=== PATIENT | male | born 1965 | race Caucasian/White ===

== ENCOUNTER 2016-05-21 05:48 | Emergency (ER) | payer OTHER ==
[~2016-05-21] VITALS: Ht 185.4 cm; Wt 99.8 kg
[~2016-05-21 05:48] MED LIST: AMOXICILLIN250 M3 PO; BACTRIM DS TAB1 EACH PO; CHLORPROMAZINE25 MG PO; CLONAZEPAM1 M2 PO; CLONAZEPAM1 MG PO; DILAUDID8 MG PO; HYDROMORPHONE HY8 MG PO; IBUPROFEN600 M1 PO; IBUPROFEN800 M1 PO; NEBULIZER INH; OLANZAPINE10 MG PO; OLANZAPINE20 MG PO; OXYCODONE5 M1 PO; OXYCONTIN (MONO40 MG PO; PERCOCET 10-321 EACH PO; PERCOCET 325 MG1 TA2 PO; PROPRANOLOL HCL20 MG PO; TRILEPTAL600 MG; VALIUM5 M1 PO; ZOFRAN ODT4 M1 PO; ZOFRAN ODT4 MG PO
[2016-05-21 06:10] VITALS: BP 186/98
--- NOTE | 2016-05-21 07:22 | ED GENERAL ADULT ---
History of Present Illness General Chief Complaint: General Adult Stated Complaint: " HICCUPS [id number], CAN'T CAUGHT MY BREATH" Source: patient, old records Exam Limitations: no limitations Vital Signs & Intake/Output Vital Signs & Intake/Output Vital Signs Date Time Temp Pulse Resp B/P Pulse O2 O2 Flow FiO2 Ox Delivery Rate 05/21 0518 Room Air 05/21 0610 98.3 113 22 186/98 100 Room Air Allergies Coded Allergies: NO KNOWN ALLERGIES (04/24/16) Reconcile Medications Amoxicillin 250 MG CAPSULE 1 CAP PO TID CELLULITIS Ibuprofen 600 MG TABLET 1 TAB PO TID PRN PAIN with food Sulfamethoxazole/Trimethoprim (Bactrim Ds Tablet) 800 MG-160 MG TABLET 1 TAB PO BID CELLULITIS Triage Note: PT TO TRIAGE FROM HOME C/O HICCUPS X2 MONTHS AND C/O SOB FROM THEM. 100% O2 ON RA. PT ALSO REPORTS SOME BLADDER DISCOMFORT BUT NO TROUBLE URINATING. Triage Nurses Notes Reviewed? yes HPI: PT PRESENTS FOR EVAL OF HICCUPS FOR 2 MONTHS. SEVERE INTERMITTENT EPISODES THAT INTERFERE WITH BREATHING. Patient saw his surgeon at the [facility] who prescribed Reglan but this is not helping. Patient states he has had multiple intra-abdominal surgeries and has a colostomy currently. He states he was evaluated in the emergency department roughly a month ago for similar symptoms. Past History Travel History Traveled to [place] past 21 day No Medical History Any Pertinent Medical History? 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 No Review of Systems Review of Systems Constitutional: Reports: no symptoms. EENTM: Reports: no symptoms. Respiratory: Reports: see HPI. Cardiovascular: Reports: no symptoms. GI: Reports: no symptoms. Genitourinary: Reports: no symptoms. Musculoskeletal: Reports: no symptoms. Skin: Reports: no symptoms. Neurological/Psychological: Reports: no symptoms. Hematologic/Endocrine: Reports: no symptoms. Immunologic/Allergic: Reports: no symptoms. All Other Systems: Reviewed and Negative Physical Exam Physical Exam General Appearance: SEE BELOW Comments: Gen.: Well-nourished, well-developed, no acute respiratory distress. Head: Normocephalic, atraumatic. Eyes: Normal inspection bilaterally Ears: Normal inspection bilaterally Nose: Normal inspection Throat/mouth : Moist mucosa Neck: Supple, full range of motion, no goiter Heart: Regular rate and rhythm, no murmurs rubs or gallops Lungs: Clear to auscultation bilaterally with normal air entry, no observed hiccuping Chest: Nontender Back: Normal range of motion Abdomen: Soft, diffuse tenderness (chronic due to multiple surgeries), nondistended, normal bowel sounds, left colostomy in place with normal-appearing output Extremities: Normal range of motion grossly, equal radial pulses, no cyanosis clubbing or edema Neurologic: Cranial nerves grossly intact, speech is clear Skin: warm and dry Psychiatric: Calm, cooperative, no apparent delusions or hallucinations Core Measures ACS in differential dx? No CVA/TIA Diagnosis: No Severe Sepsis Present: No Septic Shock Present: No Progress Differential Diagnoses I considered the following diagnoses in my evaluation of the patient: Diaphragm irritation Plan of Care: Orders Procedure Date/time Status CT CHEST WO IV CONTRAST 05/21 721 Active Initial ED EKG: none Comments: 05/21/2016 7:51:24 AM despite the patient's agreement with the emergency department plan, including CAT scan of the chest to rule out diaphragm irritation, he apparently has left the emergency department without notifying ED staff. Departure Departure Disposition: LEFT AGAINST MEDICAL ADVICE Condition: Stable Clinical Impression Primary Impression: Hiccups Referrals: PATIENT HAS NO PRIMARY CARE DR (PCP/Family) Departure Forms: Customer Survey General Discharge Information Critical Care Note Critical Care Note Critical Care Time: non-applicable
== END 2016-05-21 07:41 ==
LOC: ERH 05:48
DX: R06.6 Hiccough (principal)

== ENCOUNTER 2016-07-15 20:06 | Emergency (ER) | payer OTHER ==
--- NOTE | 2016-07-15 21:18 | ED GENERAL ADULT ---
History of Present Illness General Chief Complaint: General Adult Stated Complaint: HICUPS X 2 MONTHS Source: patient, family Exam Limitations: no limitations Vital Signs & Intake/Output Vital Signs & Intake/Output Vital Signs Date Time Temp Pulse Resp B/P Pulse O2 O2 Flow FiO2 Ox Delivery Rate 07/15 2136 97.2 89 22 144/89 98 Room Air 07/16 2015 97.0 90 24 147/93 97 Allergies Coded Allergies: NO KNOWN ALLERGIES (04/24/16) Reconcile Medications Amoxicillin 250 MG CAPSULE 1 CAP PO TID CELLULITIS Chlorpromazine HCl 25 MG TABLET 1-2 TAB PO TID PRN severe hiccups Ibuprofen 600 MG TABLET 1 TAB PO TID PRN PAIN with food Sulfamethoxazole/Trimethoprim (Bactrim Ds Tablet) 800 MG-160 MG TABLET 1 TAB PO BID CELLULITIS Triage Note: PER PT HICCUPS X 2 MONTHS ON CHLORPROMAZINE WITHOUT REGLAN DOES NOT WORK EITHER. Triage Nurses Notes Reviewed? yes Onset: Gradual Duration: week(s):, waxing and waning Timing: recent history Injury Environment: home Severity: mild Modifying Factors: Improves With: medication. Associated Symptoms: "I just have the hiccups." HPI: 50-year-old gentleman prior good health presents with pickups for the past 2 months. He states that he has been taking Thorazine intermittently. He states, "it helps, but sometimes a need to take 2 tablets. I ran out a few days ago." He notes no B symptoms, such as weight loss and abdominal pain fever chills nausea vomiting diarrhea. He is otherwise well and has no other concerns. Past History Travel History Traveled to [place] past 21 day No Medical History Any Pertinent Medical History? 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 No Review of Systems Review of Systems Constitutional: Reports: no symptoms. EENTM: Reports: no symptoms. Respiratory: Reports: no symptoms. Cardiovascular: Reports: no symptoms. GI: Reports: no symptoms. Genitourinary: Reports: no symptoms. Musculoskeletal: Reports: no symptoms. Skin: Reports: no symptoms. Neurological/Psychological: Reports: no symptoms. Hematologic/Endocrine: Reports: no symptoms. Immunologic/Allergic: Reports: no symptoms. All Other Systems: Reviewed and Negative Physical Exam Physical Exam General Appearance: well developed/nourished, mild distress Head: atraumatic, normal appearance Eyes: Bilateral: normal appearance. Ears, Nose, Throat: normal pharynx, normal ENT inspection, hearing grossly normal Neck: normal inspection, supple, full range of motion Respiratory: normal breath sounds, chest non-tender, no respiratory distress, quiet respiration, lungs clear Cardiovascular: regular rate/rhythm Gastrointestinal: normal bowel sounds, soft, non-tender, no organomegaly Back: normal inspection, normal range of motion, vertebral tenderness Extremities: normal inspection Neurologic/Psych: no motor/sensory deficits, awake, alert, oriented x 3 Skin: intact, normal color, warm/dry Core Measures ACS in differential dx? No CVA/TIA Diagnosis: No Severe Sepsis Present: No Septic Shock Present: No Progress Differential Diagnoses I considered the following diagnoses in my evaluation of the patient: Hiccups likely due to multifactorial etiology..... He is otherwise well. I refilled his Thorazine prescription. I referred him to pulmonary to consider further evaluation. Plan of Care: see below Initial ED EKG: none Departure Departure Disposition: HOME OR SELF CARE Condition: Stable Clinical Impression Primary Impression: Hiccups Referrals: PATIENT HAS NO PRIMARY CARE DR (PCP/Family) Departure Forms: Customer Survey General Discharge Information Prescriptions: Current Visit Scripts Chlorpromazine HCl 1-2 TAB PO TID PRN severe hiccups #60 TAB Ref 1 Critical Care Note Critical Care Note Critical Care Time: non-applicable
[2016-07-15] MEDS ORDERED: CHLORPROMAZINE25 M2 PO (21:23)
[2016-07-15 21:37] VITALS: BP 144/89
== END 2016-07-15 21:38 ==
LOC: ERH 20:06
DX: R06.6 Hiccough (principal)
CPT/HCPCS: 99281

== ENCOUNTER 2016-08-13 19:51 | Emergency (ER) | payer OTHER ==
[~2016-08-13] VITALS: Ht 185.4 cm; Wt 102.1 kg
[~2016-08-13 19:51] MED LIST changes: +CHLORPROMAZINE25 M2 PO
--- NOTE | 2016-08-13 21:02 | ED GI/GU/ABDOMINAL COMPLAINT ---
History of Present Illness General Chief Complaint: General Adult Stated Complaint: "HICCUPS [id number], VOMITING X4DAYS" Source: patient Exam Limitations: no limitations Vital Signs & Intake/Output Vital Signs & Intake/Output Vital Signs Date Time Temp Pulse Resp B/P Pulse O2 O2 Flow FiO2 Ox Delivery Rate 08/13 2230 96.1 88 16 128/69 97 Room Air 08/133 98 Room Air 08/13 2006 97.4 100 15 135/87 100 Room Air Allergies Coded Allergies: NO KNOWN ALLERGIES (04/24/16) Reconcile Medications Amoxicillin 250 MG CAPSULE 1 CAP PO TID CELLULITIS Chlorpromazine HCl 25 MG TABLET 1-2 TAB PO TID PRN severe hiccups Ibuprofen 600 MG TABLET 1 TAB PO TID PRN PAIN with food Ondansetron (Zofran Odt) 4 MG TAB.RAPDIS 1 TAB SL TID PRN nausea/vomiting Sulfamethoxazole/Trimethoprim (Bactrim Ds Tablet) 800 MG-160 MG TABLET 1 TAB PO BID CELLULITIS Triage Note: PT TO ED FOR HICCUPS X 6 MONTHS. Triage Nurses Notes Reviewed? yes Onset: Gradual Duration: week(s):, waxing and waning Timing: recent history Quality/Severity: cramping Location: generalized abdomen Radiation: no radiation Activities at Onset: none Prior Abdominal Problems: similar symptoms Modifying Factors: Improves With: other (medication). Associated Symptoms: nausea/vomiting HPI: 51yo gentleman h/o ostomy, chronic pain, recalcitrant hiccups, presents with hiccups and vomiting. He notes, "the thorazine helps a little... but then today, I was having such bad hiccups that I started throwing up... I couldn't keep anything down." He notes that he has had stool in his ostomy without change in consistency. He declines ct scan, given his history of several ct scans. He notes no fever, chills, chest pain. He has an appointment with a family psychologist in early September. He is otherwise well. Past History Travel History Traveled to [place] past 21 day No Medical History Any Pertinent Medical History? 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 No Review of Systems Review of Systems Constitutional: Reports: no symptoms. EENTM: Reports: no symptoms. Respiratory: Reports: no symptoms. Cardiovascular: Reports: no symptoms. GI: Reports: no symptoms. Genitourinary: Reports: no symptoms. Musculoskeletal: Reports: no symptoms. Skin: Reports: no symptoms. Neurological/Psychological: Reports: no symptoms. Hematologic/Endocrine: Reports: no symptoms. Immunologic/Allergic: Reports: no symptoms. All Other Systems: Reviewed and Negative Physical Exam Physical Exam General Appearance: well developed/nourished, mild distress Head: atraumatic, normal appearance Eyes: Bilateral: normal appearance. Ears, Nose, Throat, Mouth: hearing grossly normal, dry mucosa Neck: normal inspection, supple Respiratory: normal breath sounds, chest non-tender, no respiratory distress, quiet respiration, lungs clear Cardiovascular: regular rate/rhythm Gastrointestinal: normal bowel sounds, soft, ostomy intact w/ brown stool Back: normal inspection Extremities: normal range of motion Neurologic/Psych: no motor/sensory deficits, awake, alert, oriented x 3 Core Measures ACS in differential dx? No Severe Sepsis Present: No Septic Shock Present: No Progress Differential Diagnosis: hiccups vs viral syndrome vs other. Plan of Care: Orders Procedure Date/time Status LIPASE 08/13 2110 Complete HEPATIC FUNCTION PANEL 08/13 2110 Complete CBC WITHOUT DIFFERENTIAL 08/13 2110 Complete BASIC METABOLIC PANEL 08/13 2110 Complete AMYLASE 08/13 2110 Complete Laboratory Tests 08/13/162124: Anion Gap 10, Estimated GFR > 60, BUN/Creatinine Ratio 12.2, Glucose 93, Calcium 9.0, Total Bilirubin 0.4, Direct Bilirubin 0.3, AST 49, ALT 85 H, Alkaline Phosphatase 60, Total Protein 6.1 L, Albumin 3.6, Amylase < 30 L, Lipase 201, CBC w Diff NO MAN DIFF REQ, RBC 5.51, MCV 79.3 L, MCH 26.1 L, RDW 17.2 H, MPV 7.8, Gran % 65.8, Lymphocytes % 19.5 L, Monocytes % 12.6 H, Eosinophils % 1.9, Basophils % 0.2, Absolute Granulocytes 4.9, Absolute Lymphocytes 1.5, Absolute Monocytes 0.9 H, Absolute Eosinophils 0.1, Absolute Basophils 0, PUBS MCHC 32.9 L Initial ED EKG: none Departure Departure Disposition: HOME OR SELF CARE Condition: Stable Clinical Impression Primary Impression: Vomiting Referrals: PATIENT HAS NO PRIMARY CARE DR (PCP/Family) Departure Forms: Customer Survey General Discharge Information Prescriptions: Current Visit Scripts Ondansetron (Zofran Odt) 1 TAB SL TID PRN nausea/vomiting #10 TAB Ref 1 Comments 08/13/16, 23:18... pt feels well after 2 liters iv fluids and supportive medications. He will follow up with juan manuelry next month and return if symptoms recur.
[2016-08-13 21:40] LABS: ABSOLUTE BASOPHIL COUNT 0 /CUMM (0.0-0.2); ABSOLUTE EOSINOPHIL COUNT 0.1 /CUMM (0.0-0.7); ABSOLUTE GRANULOCYTE CT 4.9 /CUMM (1.4-6.5); ABSOLUTE LYMPH COUNT 1.5 /CUMM (1.2-3.4); ABSOLUTE MONOCYTE COUNT 0.9 /CUMM (0.10-0.60); BASOPHIL % 0.2 % (0.0-2.0); EOSINOPHIL % 1.9 % (0-5); GRANULOCYTE % 65.8 % (42.2-75.2); HEMATOCRIT 43.7 % (42-52); MEAN CORPUSCULAR HGB 26.1 PG (27.0-31.0); MEAN CORPUSCULAR HGB CONC 32.9 G/DL (33.0-37.0); MEAN CORPUSCULAR VOLUME 79.3 FL (80.0-94.0); MEAN PLATELET VOLUME 7.8 FL (7.4-10.4); PLATELET COUNT 290 /CUMM (130-400); RBC DISTRIBUTION WIDTH 17.2 % (11.5-14.5); RED BLOOD CELL CT 5.51 /CUMM (4.70-6.10); WHITE BLOOD CELL COUNT 7.4 /CUMM (4.8-10.8)
[2016-08-13 22:31] VITALS: BP 128/69
[2016-08-13] MEDS ORDERED: ZOFRAN ODT4 M1 SL (23:06)
== END 2016-08-13 23:26 ==
LOC: ERH 19:51
PROVIDERS: Pediatrics
DX: R11.10 Vomiting, unspecified (principal)
CPT/HCPCS: 96374; 96375; 96376; 99291; J2405; J3230

== ENCOUNTER 2016-10-15 19:58 | Emergency (ER) | payer OTHER ==
[~2016-10-15] VITALS: Ht 185.4 cm; Wt 99.8 kg
[~2016-10-15 19:58] MED LIST changes: +ZOFRAN ODT4 M1 SL
[2016-10-15] MEDS ORDERED: CLONAZEPAM1 M2 PO (20:23)
[2016-10-15] MEDS ORDERED: HYDROMORPHONE HC8 M1 PO (20:23)
[2016-10-15] MEDS ORDERED: LOPERAMIDE2 M2 PO (20:24)
[2016-10-15] MEDS ORDERED: CHLORPROMAZINE50 M2 PO (20:24)
[2016-10-15] MEDS ORDERED: OXYCODONE HCL10 M2 PO (20:24)
--- NOTE | 2016-10-15 20:24 | ED GI/GU/ABDOMINAL COMPLAINT ---
History of Present Illness General Chief Complaint: Abdominal Pain/Flank Pain Stated Complaint: ABD PAIN, VOMITTING, DIFF BREATHING Source: patient Exam Limitations: no limitations Vital Signs & Intake/Output Vital Signs & Intake/Output Vital Signs Date Time Temp Pulse Resp B/P B/P Pulse O2 O2 Flow FiO2 Mean Ox Delivery Rate 10/16 0015 98.0 67 20 132/78 98 10/15 2148 98.2 100 18 144/59 96 Room Air 10/15 2002 98.4 116 18 126/81 97 Room Air ED Intake and Output 10/16 0000 10/15 1200 Intake Total 2000 Output Total 200 Balance 1800 Intake, IV 2000 Output, Urine 200 Patient 220 lb Weight Allergies Coded Allergies: NO KNOWN ALLERGIES (04/24/16) Reconcile Medications Chlorpromazine HCl 50 MG TABLET 1 TAB PO TID HICCUPS (Reported) Clonazepam 1 MG TABLET 1 TAB PO 4XDAILY ANXIETY (Reported) Hydromorphone HCl 8 MG TABLET 1 TAB PO Q4H PRN PAIN (Reported) Loperamide HCl (Loperamide) 2 MG CAPSULE 2-3 CAP PO PRN GI (Reported) Olanzapine 10 MG TABLET 1 TAB PO QPM SLEEP (Reported) Olanzapine 20 MG TABLET 1 TAB PO QPM SLEEP (Reported) Oxycodone HCl 10 MG TABLET 1 TAB PO Q3H PRN PAIN (Reported) Triage Note: PT STATES THAT HE HAS BEEN HAVING ABD PAIN 10/10 X 2 DAYS WITH N/V, PT HAS COLOSTOMY DUE TO PRE CANCEROUS CELLS AND THEY REMOVED HIS LARGE INTESTINES. PT ALSO STATES THAT HE HAS HISTORY OF ILEUS. PT COMPLAINS THAT HE HAD SYNCOPLE EPISODE AT HOME Triage Nurses Notes Reviewed? yes Duration: day(s): Timing: recent history Location: generalized abdomen Activities at Onset: none Prior Abdominal Problems: similar symptoms Modifying Factors: Worsens With: vomiting. Associated Symptoms: abdominal pain, nausea/vomiting HPI: 51 yo gentleman h/o crohn's disease, s/p resection with ostomy h/o ileus, presents with 2 day history of nausea and vomiting. "I can't keep anything down.... Everything comes up... I haven't had pain meds in 2 days." He notes that he has felt so weak that he passed out briefly. Past History Travel History Traveled to [place] past 21 day No Medical History Any Pertinent Medical History? 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 No Review of Systems Review of Systems Constitutional: Reports: no symptoms. EENTM: Reports: no symptoms. Respiratory: Reports: no symptoms. Cardiovascular: Reports: no symptoms. GI: Reports: no symptoms. Genitourinary: Reports: no symptoms. Musculoskeletal: Reports: no symptoms. Skin: Reports: no symptoms. Neurological/Psychological: Reports: no symptoms. Hematologic/Endocrine: Reports: no symptoms. Immunologic/Allergic: Reports: no symptoms. All Other Systems: Reviewed and Negative Physical Exam Physical Exam General Appearance: well developed/nourished, mild distress, moderate distress Head: atraumatic, normal appearance Eyes: Bilateral: normal appearance. Ears, Nose, Throat, Mouth: hearing grossly normal Neck: normal inspection, supple, full range of motion Respiratory: normal breath sounds, chest non-tender, no respiratory distress, quiet respiration, lungs clear Cardiovascular: regular rate/rhythm Gastrointestinal: diffusely tender, mild distention. reduced bowel sounds Back: normal inspection Extremities: normal range of motion Neurologic/Psych: no motor/sensory deficits, awake, alert, oriented x 3 Skin: intact, normal color, warm/dry Core Measures ACS in differential dx? No Severe Sepsis Present: No Septic Shock Present: No Progress Differential Diagnosis: obstruction versus perforation versus abscess versus other Plan of Care: Orders Procedure Date/time Status Code Status 10/15 2327 Active LACTIC ACID 10/15 2306 Complete Add-on Test (ER Only) 10/15 2052 Active PARTIAL THROMBOPLASTIN TIME 10/16 2023 Complete PROTHROMBIN TIME 10/16 2023 Complete URINALYSIS 10/15 2005 Complete LACTIC ACID 10/15 2005 Complete COMPREHENSIVE METABOLIC PANEL 10/15 2005 Complete CBC WITHOUT DIFFERENTIAL 10/15 2005 Complete EKG 10/15 2005 Active Laboratory Tests 10/15/16 2256: Lactic Acid 0.6 L 10/15/162253: Urine Color YEL, Urine Clarity CLEAR, Urine pH 6.5, Ur Specific Lynch <= 1.005 , Urine Protein NEG, Urine Ketones NEG, Urine Nitrite NEG, Urine Bilirubin NEG, Urine Urobilinogen 0.2, Ur Leukocyte Esterase NEG, Ur Microscopic EXAM NOT REQUIRED, Urine Hemoglobin NEG, Urine Glucose NEG 10/15/162023: Anion Gap 13, Estimated GFR > 60, BUN/Creatinine Ratio 5.0 L, Glucose 148 H, Lactic Acid 2.2 H, Calcium 9.4, Total Bilirubin 0.3, AST 69 H, ALT 95 H, Alkaline Phosphatase 73, Total Protein 6.4, Albumin 4.0, Globulin 2.4, Albumin/ Globulin Ratio 1.7, PT 11.6, INR 1.11, APTT 31, CBC w Diff NO MAN DIFF REQ, RBC 5.70, MCV 79.1 L, MCH 26.1 L, RDW 17.0 H, MPV 6.5 L, Gran % 71.7, Lymphocytes % 18.0 L, Monocytes % 8.6, Eosinophils % 1.3, Basophils % 0.4, Absolute Granulocytes 7.3 H, Absolute Lymphocytes 1.8, Absolute Monocytes 0.9 H, Absolute Eosinophils 0.1, Absolute Basophils 0, PUBS MCHC 33.0 Diagnostic Imaging: Viewed by Me: Radiology Read, CT Scan. Discussed w/RAD: Radiology Read, CT Scan. Radiology Impression: abd/pelvis... concerning for obstruction. Initial ED EKG: normal axis, normal intervals, normal p-waves, normal QRS complex, normal sinus rhythm Comments: PATIENT: JUAN MANUEL ALEMAN PRESENT AGE: 51 PATIENT ACCOUNT NO: [id number] : 67 LOCATION: [facility] ORDERING PHYSICIAN: CHERYL TOMAS MD SERVICE DATE: 10/15/16 EXAM TYPE: CAT - CT ABD & PELVIS W/O IV CONTRAS EXAMINATION: CT ABDOMEN AND PELVIS WITHOUT CONTRAST CLINICAL INFORMATION: 51-year-old man with abdominal pain. History of ulcerative colitis and colonic stricture. COMPARISON: 05/28/[address] TECHNIQUE: Multidetector volumetric imaging was performed from the superior aspect of the liver through the pubic symphysis. Sagittal and coronal reformatted images were obtained on the technologist's workstation. DLP: 471 mGy-cm FINDINGS: Overall assessment is felt to be rather limited due to the lack of intravenous and oral contrast and a generalized paucity of intra-abdominal fat. The lung bases are well aerated. The liver, spleen, pancreas, adrenals, kidneys, and gallbladder are probably normal in their noncontrast appearance. There are dilated and fluid distended loops of bowel extending down into the level of the patient's left lower quadrant ostomy, somewhat difficult to assess as discussed above. Multiple areas of anastomotic suture are again seen throughout the abdomen. The prostate is normal in appearance. The bladder is distended. No free fluid is identified. Post surgical changes related to instrumented L3-L5 fusion are again noted with prominent heterotopic bone extending down along the dorsal sacrum. IMPRESSION: Somewhat limited examination demonstrates dilated loops of bowel that appear to extend down to the patient's left lower quadrant ostomy, concerning for obstruction. 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 <Electronically signed in Other Vendor System> SIGNED BY: ALL CASTANO MD 10/15/162156 Departure Departure Disposition: HOME OR SELF CARE Condition: Stable Clinical Impression Primary Impression: Abdominal pain Secondary Impressions: Ileus Referrals: PATIENT HAS NO PRIMARY CARE DR (PCP/Family) Departure Forms: Customer Survey General Discharge Information Comments 10/15/16, 23:59... discussed with dr. alex.... surgical PA evaluated patient.... pt wishes to go home.... CT scan concerning for obstruction, but pt also has known ileus.... No vomiting in ED... pt insistent about going home and will return to the ed if not feeling better.
[2016-10-15] MEDS ORDERED: OLANZAPINE10 M1 PO (20:25)
[2016-10-15] MEDS ORDERED: OLANZAPINE20 M1 PO (20:25)
[2016-10-15 20:46] LABS: ABSOLUTE BASOPHIL COUNT 0 /CUMM (0.0-0.2); ABSOLUTE EOSINOPHIL COUNT 0.1 /CUMM (0.0-0.7); ABSOLUTE GRANULOCYTE CT 7.3 /CUMM (1.4-6.5); ABSOLUTE LYMPH COUNT 1.8 /CUMM (1.2-3.4); ABSOLUTE MONOCYTE COUNT 0.9 /CUMM (0.10-0.60); BASOPHIL % 0.4 % (0.0-2.0); EOSINOPHIL % 1.3 % (0-5); GRANULOCYTE % 71.7 % (42.2-75.2); HEMATOCRIT 45.1 % (42-52); MEAN CORPUSCULAR HGB 26.1 PG (27.0-31.0); MEAN CORPUSCULAR VOLUME 79.1 FL (80.0-94.0); MEAN PLATELET VOLUME 6.5 FL (7.4-10.4); PLATELET COUNT 345 /CUMM (130-400); WHITE BLOOD CELL COUNT 10.3 /CUMM (4.8-10.8)
[2016-10-15 21:15] LABS: PT 11.6 SEC (9.4-12.5); PTT 31 SEC (25-37)
--- NOTE | 2016-10-15 21:26 | RADIOLOGY REPORT ---
EXAMINATION: XR PORTABLE CHEST CLINICAL INFORMATION: 51-year-old man with syncope. COMPARISON: 05/14/2012 chest radiograph TECHNIQUE: Portable frontal view of the chest was obtained. FINDINGS: The lungs are generally well expanded and clear, without evidence of focal airspace consolidation or overt pulmonary edema. Heart size is within the range of normal. There are no pleural effusions. IMPRESSION: No convincing radiographic evidence of an acute cardiopulmonary process.
--- NOTE | 2016-10-15 21:57 | CT SCAN REPORT ---
EXAMINATION: CT ABDOMEN AND PELVIS WITHOUT CONTRAST CLINICAL INFORMATION: 51-year-old man with abdominal pain. History of ulcerative colitis and colonic stricture. COMPARISON: 05/28/[address] TECHNIQUE: Multidetector volumetric imaging was performed from the superior aspect of the liver through the pubic symphysis. Sagittal and coronal reformatted images were obtained on the technologist's workstation. DLP: 471 mGy-cm FINDINGS: Overall assessment is felt to be rather limited due to the lack of intravenous and oral contrast and a generalized paucity of intra-abdominal fat. The lung bases are well aerated. The liver, spleen, pancreas, adrenals, kidneys, and gallbladder are probably normal in their noncontrast appearance. There are dilated and fluid distended loops of bowel extending down into the level of the patient's left lower quadrant ostomy, somewhat difficult to assess as discussed above. Multiple areas of anastomotic suture are again seen throughout the abdomen. The prostate is normal in appearance. The bladder is distended. No free fluid is identified. Post surgical changes related to instrumented L3-L5 fusion are again noted with prominent heterotopic bone extending down along the dorsal sacrum. IMPRESSION: Somewhat limited examination demonstrates dilated loops of bowel that appear to extend down to the patient's left lower quadrant ostomy, concerning for obstruction.
[2016-10-16 00:15] VITALS: BP 132/78
--- NOTE | 2016-10-16 06:35 | Cons- General Surgery ---
General Information and HPI Consulting Request Date of Consult: 10/15/16 Requested By: Dr. Gomez Reason for Consult: abdominal pain History of Present Illness: 51M presents to ED with abdominal pain, nausea and abscence of ostomy output worsening over last 2 days. PMHx UC sp total abdominal colectomy and end ileostomy 2011, with multiple SBOs/ileus and bowel resections. He gets his care at [facility], but came here due to proximity to home. At time of interview, patient had stool in his ostomy bag and had no pain. He denied n/v/ cp/sob. He wanted to dc home from ER, as his presenting issues had resolved. Allergies/Medications Allergies: Coded Allergies: NO KNOWN ALLERGIES (04/24/16) Home Med List: Chlorpromazine HCl 50 MG TABLET 1 TAB PO TID HICCUPS (Reported) Clonazepam 1 MG TABLET 1 TAB PO 4XDAILY ANXIETY (Reported) Hydromorphone HCl 8 MG TABLET 1 TAB PO Q4H PRN PAIN (Reported) Loperamide HCl (Loperamide) 2 MG CAPSULE 2-3 CAP PO PRN GI (Reported) Olanzapine 10 MG TABLET 1 TAB PO QPM SLEEP (Reported) Olanzapine 20 MG TABLET 1 TAB PO QPM SLEEP (Reported) Oxycodone HCl 10 MG TABLET 1 TAB PO Q3H PRN PAIN (Reported) Past History Medical History Neurological: NONE EENT: NONE Cardiovascular: NONE Respiratory: NONE Gastrointestinal: ulcerative colitis, ILEUS, UC sp Total abdominal colectomy and end ileostomy Hepatic: hepatitis C Renal: NONE Musculoskeletal: CHRONIC BACK PAIN "SMASHED DISK" Psychiatric: NONE Endocrine: NONE Blood Disorders: NONE [employer]PER[employer]OR/Reproductive: NONE Surgical History Pertinent Surgical History: ulcerative colitis sp TAC and end ileostomy, stricture sp bowel resection Psychosocial History ETOH Use: denies use Illicit Drug Use: denies illicit drug use Exam & Diagnostic Data Vital Signs and I&O Vital Signs Date Time Temp Pulse Resp B/P B/P Pulse O2 O2 Flow FiO2 Mean Ox Delivery Rate 10/16 0015 98.0 67 20 132/78 98 10/16 2147 98.2 100 18 144/59 96 Room Air 10/15 2002 98.4 116 18 126/81 97 Room Air Intake & Output 10/16 0800 10/16 0000 10/15 1600 10/15 0800 10/15 0000 10/14 1600 Intake Total 2000 Output Total 200 Balance 1800 Intake, IV 2000 Output, Urine 200 Patient 220 lb Weight Physical Exam: gen; NAD card: s1s2 rrr pilm: ctab abd: liquid stool in ostomy bag, stoma pink, nt, nd, skin with red raw areas under ostomy appliance adhesive Last 24 Hours of Labs: Laboratory Tests 10/15 10/15 2256 2254 Chemistry Lactic Acid (0.7 - 2.1 mmol/L) 0.6 L Urines Urine Color (YEL,AMB,STR) YEL Urine Clarity (CLEAR) CLEAR Urine pH (5.0 - 8.0) 6.5 Ur Specific [place] (1.001 - 1.035) <= 1.005 Urine Protein (NEG,<30 MG/DL) NEG Urine Ketones (NEG) NEG Urine Nitrite (NEG) NEG Urine Bilirubin (NEG) NEG Urine Urobilinogen (0.1 - 1.0 EU/dl) 0.2 Ur Leukocyte Esterase (NEG) NEG Ur Microscopic EXAM NOT REQUIRED Urine Hemoglobin (NEG) NEG Urine Glucose (N MG/DL) NEG 10/16 2023 Chemistry Sodium (137 - 145 mmol/L) 133 L Potassium (3.5 - 5.1 mmol/L) 3.9 Chloride (98 - 107 mmol/L) 99 Carbon Dioxide (22 - 30 mmol/L) 20 L Anion Gap (5 - 16) 13 BUN (9 - 20 mg/dL) 5 L Creatinine (0.7 - 1.2 mg/dL) 1.0 Estimated GFR (>60 ml/min) > 60 BUN/Creatinine Ratio (7 - 25 %) 5.0 L Glucose (65 - 99 mg/dL) 148 H Lactic Acid (0.7 - 2.1 mmol/L) 2.2 H Calcium (8.4 - 10.2 mg/dL) 9.4 Total Bilirubin (0.2 - 1.3 mg/dL) 0.3 AST (17 - 59 U/L) 69 H ALT (21 - 72 U/L) 95 H Alkaline Phosphatase (< 127 U/L) 73 Total Protein (6.3 - 8.2 g/dL) 6.4 Albumin (3.5 - 5.0 g/dL) 4.0 Globulin (1.9 - 4.2 gm/dL) 2.4 Albumin/Globulin Ratio (1.1 - 2.2 %) 1.7 Coagulation PT (9.4 - 12.5 SEC) 11.6 INR (0.90 - 1.17) 1.11 APTT (25 - 37 SEC) 31 Hematology CBC w Diff NO MAN DIFF REQ WBC (4.8 - 10.8 /CUMM) 10.3 RBC (4.70 - 6.10 /CUMM) 5.70 Hgb (14.0 - 18.0 G/DL) 14.9 Hct (42 - 52 %) 45.1 MCV (80.0 - 94.0 FL) 79.1 L MCH (27.0 - 31.0 PG) 26.1 L RDW (11.5 - 14.5 %) 17.0 H Plt Count (130 - 400 /CUMM) 345 MPV (7.4 - 10.4 FL) 6.5 L Gran % (42.2 - 75.2 %) 71.7 Lymphocytes % (20.5 - 51.1 %) 18.0 L Monocytes % (1.7 - 9.3 %) 8.6 Eosinophils % (0 - 5 %) 1.3 Basophils % (0.0 - 2.0 %) 0.4 Absolute Granulocytes (1.4 - 6.5 /CUMM) 7.3 H Absolute Lymphocytes (1.2 - 3.4 /CUMM) 1.8 Absolute Monocytes (0.10 - 0.60 /CUMM) 0.9 H Absolute Eosinophils (0.0 - 0.7 /CUMM) 0.1 Absolute Basophils (0.0 - 0.2 /CUMM) 0 PUBS MCHC (33.0 - 37.0 G/DL) 33.0 Assessment/Plan Assessment/Plan A/P: 51yoM with extensive surgical hx related to UC, now with functioning ostomy and resolved obstructive symptoms, with improved lactate after hydration, stable. P: OK to dc home from ED. Instructed to stay on clear liquid diet for few days and slowly advance as tolerated. Should fu with his surgeon at [facility] within the next week. Dr. Bliss aware Consult Acknowledgment - Thank you for your consult request.
== END 2016-10-16 ==
LOC: ERH 19:58
PROVIDERS: Emergency Medicine
DX: K56.7 Ileus, unspecified (principal)
CPT/HCPCS: 74176; 81003; 93005; 93010; 96374; 96375; 96376; J2405; J2550